=== PATIENT | female | born 1925 | race Caucasian/White ===

== ENCOUNTER 2016-12-24 07:07 | Inpatient (IN) ==
--- NOTE | 2016-12-24 08:10 | XRay Report ---
CLINICAL INFORMATION: Trauma COMPARISON: Chest x-ray from 10/29/2016 FINDINGS: The heart is moderately enlarged but unchanged. Mediastinum is grossly normal. The pulmonary vessels are moderately distended and there is mild interstitial edema throughout both lungs. Moderate right and small left pleural effusions and bibasilar atelectasis are unchanged. Acute fractures of the lateral left fifth and possibly sixth and seventh ribs are noted IMPRESSION: Moderate CHF - unchanged Acute left fifth and probable six and seventh rib fractures Interpreted and Authenticated by: Chetan Pichardo 12/24/16
--- NOTE | 2016-12-24 08:18 | XRay Report ---
CLINICAL INFORMATION: Trauma COMPARISON: None. FINDINGS: No fracture line identified; however, there is distention of the anterior and posterior extra synovial fat pads compatible with a joint effusion. 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 Mild diffuse soft tissue swelling noted. IMPRESSION: No fracture line or other osseous abnormality appreciated Moderate elbow effusion. Typically, in a posttraumatic situation, this would indicate an occult fracture with associated hemarthrosis. In this particular case, the patient has chondrocalcinosis and may have an underlying arthritic process, such as gout or pseudogout, which may result in an effusion independent of trauma. As a conservative measure, suggest immobilization and repeat film in 10 days to ensure the absence of a occult fracture which may be visible on delayed imaging. Also, please query patient regarding pre-existing elbow pain suggestive of a chronic arthritic process Interpreted and Authenticated by: Chetan Pichardo 12/24/16
--- NOTE | 2016-12-24 08:33 | Emergency Department Note ---
General Adult HPI - General Chief complaint: Rib Pain Stated complaint: fall, l elbow and rib pain Time Seen by Provider: 12/24/16 08:30 Source: patient Mode of arrival: wheelchair Limitations: no limitations - History of Present Illness HPI Narrative: 89-year-old female states that she slid off the toilet and is complaining about pain to the left lower rib cage area. s He denies any shortness of breath but there is tenderness on palpation to the left lower rib laterally. She states she did not hit her head there was no neck pain. she states she did not hit her head. Did states she bumped her left elbow there is some swelling and tenderness to the left elbow is full range of motion and normal sensation she lives at [facility] and is on the assisted side - Related Data Home Medications Medication Instructions Recorded Confirmed acetaminophen 500 mg tablet 500 mg PO Q6H tab 08/31/16 12/24/16 Cyanocobalamin (Vitamin B-12) 1,000 mcg PO BID 10/08/16 12/24/16 [Vitamin B12] Ferrous Gluconate [Fergon] 324 mg PO DAILY 10/08/16 12/24/16 Previous Rx's Medication Instructions Recorded lisinopril 2.5 mg tablet 2.5 mg PO .COMPLEX #30 tab 10/15/16 potassium chloride ER 10 mEq 20 meq PO BID #56 tab 10/15/16 tablet,extended release diltiazem ER 360 mg capsule,24 300 mg PO QDAY #90 cap 10/24/16 hr,extended release fluticasone 250 mcg-salmeterol 50 1 puff INHALATION BID #60 each 10/30/16 mcg/dose blistr powdr for inhalation furosemide 40 mg tablet 40 mg PO BID #60 tab 11/01/16 Manual wheelchair #1 each 11/15/16 metolazone 5 mg tablet 5 mg PO QDAY #30 tab 11/26/16 silver sulfadiazine 1 % topical 1 applic TOPICAL QDAY #50 g 12/03/16 cream warfarin 3 mg tablet 6 mg PO .COMPLEX #90 tab 12/17/16 Allergies Allergy/AdvReac Type Severity Reaction Status Date / Time clarithromycin Allergy Unknown Unknown Verified 12/17/16 12:57 divalproex sodium Allergy Unknown Unknown Verified 12/17/16 12:57 [From Depakote] doxycycline Allergy Unknown Unknown Verified 12/17/16 12:57 spironolactone Allergy Unknown Elevated Verified 12/17/16 12:57 potassium digoxin Allergy Unknown Verified 12/17/16 12:57 Erythromycin Base Allergy Unknown Verified 12/17/16 12:57 Review of Systems All systems ED: reviewed and negative except as stated. Constitutional: Denies: fever, chills Eyes: Denies: eye pain ENT ED: Denies: ear pain Cardiovascular: Reports: as per HPI, chest pain (left rib pain). Denies: palpitations, dyspnea on exertion, orthopnea Respiratory: Denies: cough, dyspnea Gastrointestinal: Denies: abdominal pain, nausea, vomiting Genitourinary: Denies: urgency, dysuria Musculoskeletal: Denies: back pain Integumentary: Denies: rash Neurological: Denies: headache Psychiatric: Denies: anxiety Endocrine: Denies: fatigue Hematological/Lymphatic: Denies: easy bleeding Allergic/Immunologic: Denies: facial swelling Past Medical History - Past Medical History Medical history: Reports: atrial fibrillation, CHF, COPD, other (Stenosis, atrial fibrillation, COPD, urinary artery disease, retention, lumbosacral disc disease macular degeneration show stenosis asthma CKD.) Surgical history ED: Reports: non-contributory 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 Absent: respiratory distress, wheezes - Cardiovascular Cardiovascular exam: Present: regular rate, normal rhythm - Abdominal Exam Abdominal exam: Present: soft. Absent: distention, tenderness - Expanded Upper Extremity Exam Shoulder exam: Present: normal inspection, full ROM Elbow exam: Present: tenderness (left elbow), swelling Forearm/Wrist exam: Present: normal inspection, full ROM - Back Exam Back exam: Present: normal inspection, full ROM. Absent: tenderness, CVA tenderness (R), CVA tenderness (L) - Neurological Exam Neurological exam: Present: alert, oriented X3, CN II-XII intact, normal gait, motor sensory deficit - Psychiatric Psychiatric exam: Present: normal affect, normal mood - Skin Skin exam: Present: warm Course Vital Signs Temperature 96.7 F L 12/24/16 07:08 Pulse Rate 78 12/24/16 07:08 Respiratory Rate 18 12/24/16 07:08 Blood Pressure 112/44 12/24/16 07:08 Pulse Oximetry (%) 95 12/24/16 07:08 Temperature 96.7 F L 12/24/16 07:08 Pulse Rate 78 12/24/16 07:08 Respiratory Rate 18 12/24/16 07:08 Blood Pressure 112/44 12/24/16 07:08 Pulse Oximetry (%) 95 12/24/16 07:08 Medical Decision Making - MDM Narrative Medical decision making narrative: rib fracture of left 5,6,7 chf on chest. elevated fat pad left elbow no fx seen put in sling for now. 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
[2016-12-24] MEDS ORDERED: FUROSEMIDE 40 MG/4 ML VIAL IV ONE (08:51)
[2016-12-24] MEDS ORDERED: HYDROcodone/APAP 5/325MG TABLET PO ONE (09:06)
[2016-12-24 09:16] LABS: Basophils # (Auto) 0 K/mcL (0.0-0.3); Basophils % (Auto) 0.2 % (0.0-2.0); Eosinophils # (Auto) 0 K/mcL (0.0-0.7); Eosinophils % (Auto) 1.1 % (0.0-7.0); Granulocytes % (Auto) 77.5 % (38.0-78.0); Lymphocytes # (Auto) 0.3 K/mcL (1.5-4.8); Lymphocytes % (Auto) 6.5 % (15.5-49.0); Mean Cell Volume 89.1 fL (80.0-100.0); Mean Corpuscular HGB Conc 33.5 g/dL (31.0-36.0); Mean Corpuscular Hemoglobin 29.8 pg (26.0-34.0); Monocytes # (Auto) 0.6 K/mcL (0.1-0.9); Monocytes % (Auto) 14.7 % (1.0-12.0); Platelet Count 146 K/mcL (140-440); RBC 3.62 M/mcL (4.00-5.20); Red Cell Distribution Width 15.6 % (11.5-14.5)
[2016-12-24 09:36] LABS: Creatine Kinase 46 IU/L (24-170); Creatine Kinase MB 4.3 ng/ml (0-2.9); Myoglobin 159 ng/ml (25-58)
[2016-12-24] MEDS ORDERED: HYDROmorphone 2 MG/ML SYRINGE IV PRN (10:17)
[2016-12-24] MEDS ORDERED: MAGNESIUM HYDROXIDE 30 ML ORAL.SUSP PO PRN (10:55)
[2016-12-24] MEDS ORDERED: ONDANSETRON 4 MG/2 ML VIAL IV PRN (10:55)
[2016-12-24] MEDS ORDERED: NALOXONE HCL 0.4 MG/ML VIAL IV PRN (10:55)
[2016-12-24] MEDS ORDERED: IPRATROPIUM/ALBUTEROL 3 ML AMPUL.NEB NEB PRN (10:55)
[2016-12-24 12:25] LABS: ALT/SGPT 11 U/l (0-40); Albumin 3.7 gm/dL (3.2-5.2); Albumin/Globulin Ratio 1.5 (1.0-2.3); Alkaline Phosphatase 114 U/L (39-117); Bilirubin,Direct 0.2 mg/dL (0.0-0.3); Blood Urea Nitrogen 43 mg/dl (8-23); Gamma Glutamyl Transpeptidase 99 U/L (5-36); Magnesium 2.1 mg/dL (1.6-2.5); Uric Acid 10.7 mg/dL (2.5-8.0)
[2016-12-24] MEDS ORDERED: SODIUM POLYSTYRENE SULFONATE 15 GM/60 ML SUSPENSION PO ONE (13:49)
[2016-12-24] MEDS ORDERED: SILVER SULFADIAZINE CREAM.TOP 25GM TOPICAL SCH (14:00)
[2016-12-24] MEDS ORDERED: WARFARIN 3 MG TABLET PO SCH (14:00)
--- NOTE | 2016-12-24 14:00 | Internal Med History&Physical ---
Medical - H&P: HPI Patient information: Note initiated : 12/24/16 at 1:57 pm Service Date, if different from initiated Date: [] Patient: Padilla Harmon 89 y/o F admitted on 12/24/16 for fall, l elbow and rib pain. Chief Complaint: [] History of present illness: Ms. 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 According to the patient she was doing well untill this AM, she was in a hurry to get to breakfast and was transferring from a walker to the wheelchair, she was in her closetwhen she slipped down and hurt the left side of her body. The patient denies any dizziness, any head injury, any passing out. The patient had chest pain on the left side. Since that time. The pain is moderate to severe sharp, nonradiating, worse with taking a deep breath or cough. Relieved by aking shallow breaths. The patient felt that she will not be able to get up by herself and therefore yelled for help The patient was brought into the ER and also protocol for evaluation. In the emergency room, the patient had x-ray of the left side of the ribs along with chest x-ray, there was concern about trauma to the left elbow. An x-ray of the left elbow was done. The x-ray of the chest showed possible fracture of the ribs 5, 6, 7. The exploratory moderate congestive heart failure, which is a chronic finding, along with cardiomegaly. The left elbow x-ray did not show any fracture, however, there was some swelling in the elbow joint with concern about hemarthrosis. Patient is on Coumadin with therapeutic INR. Patient's blood work shows low sodium at 125. This was a [id number] sodium, elevated creatinine 2.3, and troponin of 0.05 which is slightly above her baseline. The patient also has elevated BNP levels but not significantly different than her previous blood tests. The patient denies any cough, any fevers, any urinary symptoms, any bowel or bladder complaints and besides symptoms mentioned above. Does not feel that anything else is going on with her . The patient given her hyponatremia, worsening renal function New acute fractures, was admitted to the hospital for further evaluation. On talking to the family, the patient was recently admitted to [facility] for hyperkalemia,it seems that she had taken too much potassium at that time. And at that time. Also, there was concern about the kidney was not functioning very well. The patients was admitted to the hospital for acute on chr renal failure, rib fracture, congestive heart failuire. All systems: reviewed and no additional remarkable complaints except as stated ( as per HPI) Medical - H&P: H Medical history: Medical History (Last Updated 12/24/16 @ 08:52 by Doroteo Barfield MD) Aortic stenosis (Chronic) Atherosclerosis (Chronic) Atrial fibrillation (Chronic) COPD (chronic obstructive pulmonary disease) (Chronic) Constipation (Chronic) Coronary artery disease (Chronic) DDD (degenerative disc disease) (Chronic) Hyperlipidemia (Chronic) Benign essential hypertension (Chronic) Lumbar disc disease (Chronic) Macular degeneration (Chronic) Mitral stenosis (Chronic) Nuclear sclerosis (Chronic) Pseudophakia (Chronic) Urinary tract infection (Chronic) Unspecified visual disturbance (Chronic) Heart valve regurgitation (Chronic) Irregularly irregular pulse rhythm (Chronic) Asthma (Chronic) Iron deficiency anemia (Chronic) Surgical history: Past Surgical History (Last Reviewed 11/15/16 @ 14:02 by Doroteo Fried MD) History of aortic valve replacement (Chronic) History of appendectomy (Chronic) History of back surgery (Chronic) History of cholecystectomy (Chronic) History of colonoscopy with polypectomy (Chronic ~2005) History of coronary artery bypass graft (Chronic) History of hysterectomy (Chronic) History of knee surgery (Chronic ~1995) History of open reduction and internal fixation (ORIF) procedure (Chronic ) History of thoracentesis (Chronic 06/01/14) Family history: reviewed and not pertinent Medical - H&P: Meds Home Medications Medication Instructions Recorded Confirmed Type acetaminophen 500 mg tablet 500 mg PO Q6H tab 08/31/16 11/26/16 History Cyanocobalamin (Vitamin B-12) 1,000 mcg PO BID 10/08/16 12/24/16 History [Vitamin B12] Ferrous Gluconate [Fergon] 324 mg PO DAILY 10/08/16 12/24/16 History lisinopril 2.5 mg tablet 2.5 mg PO .COMPLEX #30 tab 10/15/16 12/24/16 Rx potassium chloride ER 10 mEq 20 meq PO BID #56 tab 10/15/16 12/24/16 Rx tablet,extended release diltiazem ER 360 mg capsule,24 300 mg PO QDAY #90 cap 10/24/16 12/24/16 Rx hr,extended release fluticasone 250 mcg-salmeterol 50 1 puff INHALATION BID #60 each 10/30/16 Rx mcg/dose blistr powdr for inhalation furosemide 40 mg tablet 40 mg PO BID #60 tab 11/01/16 12/24/16 Rx Manual wheelchair #1 each 11/15/16 11/26/16 Rx metolazone 5 mg tablet 5 mg PO QDAY #30 tab 11/26/16 12/24/16 Rx silver sulfadiazine 1 % topical 1 applic TOPICAL QDAY #50 g 12/03/16 12/24/16 Rx cream Warfarin Sodium [Jantoven] 3 mg PO MOTH@1400 12/24/16 12/24/16 History Warfarin Sodium [Jantoven] 6 mg PO SUTUWEFRSA@1400 12/24/16 12/24/16 History Allergies Allergy/AdvReac Type Severity Reaction Status Date / Time clarithromycin Allergy Unknown Unknown Verified 12/17/16 12:57 divalproex sodium Allergy Unknown Unknown Verified 12/17/16 12:57 [From Depakote] doxycycline Allergy Unknown Unknown Verified 12/17/16 12:57 spironolactone Allergy Unknown Elevated Verified 12/17/16 12:57 potassium digoxin Allergy Unknown Verified 12/17/16 12:57 Erythromycin Base Allergy Unknown Verified 12/17/16 12:57 Medical - H&P: Exam - Constitutional Vitals: Temp Pulse Resp BP Pulse Ox 97.2 F 47 L 20 109/57 93 12/24/16 10:45 12/24/16 12:31 12/24/16 10:45 12/24/16 12:31 12/24/16 12:31 Exam: GENERAL: The patient is a well-developed, well-nourished in no apparent distress. Is alert and oriented x3. VITAL SIGNS: Reviewed and as noted elsewhere. HEENT: Head is normocephalic and atraumatic. Extraocular muscles are intact. Pupils are equal, round, and reactive to light. Nares appeared normal. Mouth appears any without lesions. Mucous membranes are moist. NECK: Normal to inspection, Supple, No lymphadenopathy or thyromegaly. LUNGS: Air entry equal on both sides, no wheezing,but bibasilar crackles noted. No accessory muscles of respiration HEART: Regular rate and rhythm irregular, S1 and S2 heard, no Gallop, S3 or Rub Noted, systolic murmur present, left sided chest wall tenderness present ABDOMEN: Soft, nontender, and nondistended. Positive bowel sounds. No hepatosplenomegaly was noted. EXTREMITIES: No cyanosis, clubbing, rash, lesions or edema. NEUROLOGIC: Cranial nerves II through XII are grossly intact. Motor and Sensory System Grossly Intact PSYCHIATRIC: Normal affect, Normal Mood. Appropriate Behavior. SKIN: No ulceration or wounds noted, No jaundice, No rash noted. Extremity: tonya edema ++++ Left ellbow: in sling, tender to touch on the olceron region, also mild crepitus on deep palpation noted. Medical - H&P: Reslt - Labs CBC & Chem 7: 12/24/16 08:47 12/24/16 11:04 Labs: BMP 12/24/16 11:04 Sodium 125 L Potassium 5.3 H Chloride 86 L Carbon Dioxide 28 BUN 43 H Creatinine 2.1 H Glucose 112 H Calcium 8.9 Cardiac Enzymes 12/24/16 Range/Units 11:04 Troponin T 0.05 H* (0-0.03) ng/ml Liver Function 12/24/16 Range/Units 11:04 Total Bilirubin 0.6 (0.0-1.0) mg/dL Direct Bilirubin 0.2 (0.0-0.3) mg/dL GGT 99 H (5-36) U/L AST 21 (0-37) U/l ALT 11 (0-40) U/l Alkaline Phosphatase 114 (39-117) U/L Albumin 3.7 (3.2-5.2) gm/dL Medical - H&P: A/P - Narrative A/P Narrative: A/P Acute on Chr Renal failure: Get UA, Given fluid overload situation, likely secondary to CHF, IV lasix given, will monitor for now. Renal USG ordered. Acute on Chr Congestive Heart failure: due to ischemic and valvular etiology. IV lasix given. Monitor on tele, get Echo. Follows with Cardiology. Elevated Troponin.: Likely secondary to renal failure and chf, EKG does not show ST elevations, but has non specific changes. Old EKG not available for comparison. Repeat trop is also 0.05, pt not keen on major interventions at this time. Monitor for now. She is anticoagulated on coumadin. Hyperkalemia K 5.3, one dose of kayexalate today, reassess, hold KCL supplementation. Hyponatremia: Last sodium was 130, presently 125, given fluid overloaded status , likely secondary to chf / ckd, Diuresis for now and will reassess Rib Fractures: due to fall, pain management, Incentive spirometry. Atrial Fibrillation: Rate controlled on cardizem, on coumadin with therapeutic INR Elbow pain: X ray neg, but has arthrosis? effusion? keep in sling, get CT elbow. Weakness/ Debility: OT/ PT/ ST Recent Cellutlitis of left hand: s/p antibiotics, on silvadene cream DNR Cardiac diet Medical - H&P: Qual - VTE Deep Vein Thrombosis/Pulmonary Embolism Present on Admission: No Social History - Tobacco smoking status: Never smoker - Alcohol alcohol intake frequency: holiday/special occasion only - Substance use substance use type: does not use
[2016-12-24] MEDS: HYDROcodone/APAP 5/325MG TABLET PO PRN ×2 (14:35→19:55)
--- NOTE | 2016-12-24 14:38 | Cat Scan Report ---
CLINICAL INFORMATION: trauma COMPARISON: Plain films 12/24/2016 TECHNIQUE:. 2.5 mm helical slices were obtained from the distal one half of the humerus to the proximal one half of the radius and ulna. Following reconstruction, sagittal coronal axial reformatted images were processed and reviewed in bone and soft tissue windows FINDINGS: There is a subtle curvilinear hairline fracture through the medial radial head which communicates with the articular surface of the radius. No other osseous abnormalities. No definite effusions. There is moderate chondrocalcinosis within the elbow joint - particularly the radiocapitellar joint mild underlying degeneration noted. There is mild soft tissue swelling in the periarticular soft tissues.. IMPRESSION: 1. Subtle curvilinear hairline fracture involving the medial aspect of the radial head. 2. 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 This is likely merely related to degeneration could also indicate gout, pseudogout, hypercalcemia or hypothyroidism Interpreted and Authenticated by: Chetan Pichardo 12/24/16
--- NOTE | 2016-12-24 14:48 | Ultrasound Report ---
CLINICAL INFORMATION: Renal failure COMPARISON: Abdomen and pelvic CT from 05/10/2010 FINDINGS: Both kidneys are normal and symmetric in size, position, configuration and echotexture: The right is 10 x 5.6 cm and the left is 10 x 5 cm. Scattered simple cysts on both kidneys ranging up to 2.2 cm inferior pole left kidney are stable since the CT. No solid lesions. A 5 mm nonobstructing stone is noted in the mid calyx the left kidney. There is no hydronephrosis suggest obstructing stone. Arterial blood flow is grossly normal on color and spectral Doppler Urinary bladder volume is 180 cc - patient unable to void. No bladder lesions IMPRESSION: 1. Bilateral simple cysts stable since 2011 CT 2. 5 mm nonobstructing stone mid calyx left kidney. Interpreted and Authenticated by: Chetan Pichardo 12/24/16
[2016-12-24] MEDS: SILVER SULFADIAZINE CREAM.TOP 400GM TOPICAL SCH (15:11)
[2016-12-24] MEDS ORDERED: POTASSIUM CHLORIDE 20 MEQ TABLET PO SCH (17:30)
[2016-12-24] MEDS: CYANOCOBALAMIN (VITAMIN B-12) 500 MCG TABLET PO SCH (20:31)
[2016-12-24] MEDS: FLUTICASONE/SALMETEROL 250/50 INHALER #14 INH SCH (20:33)
[2016-12-24] MEDS: 0.9 % SODIUM CHLORIDE 10 ML SYRINGE IV SCH (21:07)
[2016-12-25] MEDS: HYDROcodone/APAP 5/325MG TABLET PO PRN ×3 (03:15→21:55)
[2016-12-25] MEDS: 0.9 % SODIUM CHLORIDE 10 ML SYRINGE IV SCH ×3 (06:05→21:54)
[2016-12-25] MEDS: FERROUS GLUCONATE 324 MG TABLET PO SCH (08:29)
[2016-12-25] MEDS: DILTIAZEM 120 MG CAP.XL.24H PO SCH (08:31)
[2016-12-25] MEDS: CYANOCOBALAMIN (VITAMIN B-12) 500 MCG TABLET PO SCH ×2 (08:32→19:50)
[2016-12-25] MEDS: DILTIAZEM 180 MG CAP.XL.24H PO SCH (08:33)
[2016-12-25] MEDS: FLUTICASONE/SALMETEROL 250/50 INHALER #14 INH SCH ×2 (08:38→19:50)
[2016-12-25 08:41] LABS: Basophils # (Auto) 0 K/mcL (0.0-0.3); Basophils % (Auto) 0.4 % (0.0-2.0); Eosinophils # (Auto) 0.1 K/mcL (0.0-0.7); Eosinophils % (Auto) 2.5 % (0.0-7.0); Granulocytes % (Auto) 69.9 % (38.0-78.0); Lymphocytes # (Auto) 0.4 K/mcL (1.5-4.8); Lymphocytes % (Auto) 11.2 % (15.5-49.0); Mean Corpuscular HGB Conc 33.2 g/dL (31.0-36.0); Mean Corpuscular Hemoglobin 29.9 pg (26.0-34.0); Monocytes # (Auto) 0.6 K/mcL (0.1-0.9); Platelet Count 144 K/mcL (140-440); RBC 3.71 M/mcL (4.00-5.20); Red Cell Distribution Width 15.6 % (11.5-14.5)
[2016-12-25 08:47] LABS: Appearance,Urine CLEAR; Bacteria,Urine 0 /hpf (0); Bilirubin,Urine NEG (NEG); Color,Urine YELLOW; Glucose,Urine (UA) NEGATIVE (NEG); Leukocyte Esterase,Urine NEG /uL (NEG); Mucus,Urine FEW /hpf (0); Nitrate,Urine NEG (NEG); Protein,Urine NEG (NEG); Urine Blood NEG mg/dL (<0.03); Urine Hyaline Cast 1 /lpf (0-2); Urine RBC 0 /hpf (0-1); Urine Squamous Epithelial Cell 1 /hpf (0-4); Urine Transitional Epi Cells < 1 /hpf (0-2); Urine WBC < 1 /hpf (0-4); Urobilinogen,Urine NEG (NEG)
[2016-12-25 09:06] LABS: ALT/SGPT 11 U/l (0-40); Albumin 3.7 gm/dL (3.2-5.2); Albumin/Globulin Ratio 1.5 (1.0-2.3); Alkaline Phosphatase 115 U/L (39-117); Bilirubin,Direct 0.2 mg/dL (0.0-0.3); Blood Urea Nitrogen 38 mg/dl (8-23); Gamma Glutamyl Transpeptidase 101 U/L (5-36); Magnesium 1.9 mg/dL (1.6-2.5)
[2016-12-25] MEDS ORDERED: FUROSEMIDE 40 MG/4 ML VIAL IV ONE (09:23)
[2016-12-25] MEDS: SILVER SULFADIAZINE CREAM.TOP 400GM TOPICAL SCH (13:32)
[2016-12-25] MEDS: WARFARIN 3 MG TABLET PO SCH (14:16)
--- NOTE | 2016-12-25 14:43 | Internal Med Progress Note ---
Medical - PN: Subj Patient information: Note initiated : 12/25/16 at 2:40 pm Service Date, if different from initiated Date: [] Patient: Padilla Harmon 89 y/o F admitted on 12/24/16 for CHF, Rib Fractures, Elbow Injury. Chief Complaint: [] Interval history: Ms. 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 According to the patient she was doing well untill this AM, she was in a hurry to get to breakfast and was transferring from a walker to the wheelchair, she was in her closetwhen she slipped down and hurt the left side of her body. The patient denies any dizziness, any head injury, any passing out. The patient had chest pain on the left side. Since that time. The pain is moderate to severe sharp, nonradiating, worse with taking a deep breath or cough. Relieved by aking shallow breaths. The patient felt that she will not be able to get up by herself and therefore yelled for help The patient was brought into the ER and also protocol for evaluation. In the emergency room, the patient had x-ray of the left side of the ribs along with chest x-ray, there was concern about trauma to the left elbow. An x-ray of the left elbow was done. The x-ray of the chest showed possible fracture of the ribs 5, 6, 7. The exploratory moderate congestive heart failure, which is a chronic finding, along with cardiomegaly. The left elbow x-ray did not show any fracture, however, there was some swelling in the elbow joint with concern about hemarthrosis. Patient is on Coumadin with therapeutic INR. Patient's blood work shows low sodium at 125. This was a kduvp-[id number]-tqfi sodium, elevated creatinine 2.3, and troponin of 0.05 which is slightly above her baseline. The patient also has elevated BNP levels but not significantly different than her previous blood tests. The patient denies any cough, any fevers, any urinary symptoms, any bowel or bladder complaints and besides symptoms mentioned above. Does not feel that anything else is going on with her . The patient given her hyponatremia, worsening renal function New acute fractures, was admitted to the hospital for further evaluation. On talking to the family, the patient was recently admitted to [facility] for hyperkalemia,it seems that she had taken too much potassium at that time. And at that time. Also, there was concern about the kidney was not functioning very well. The patients was admitted to the hospital for acute on chr renal failure, rib fracture, congestive heart failure 12/25 patient seen and examined, no acute overnight events, she still has pain on the left side of the chest, pain is better when she is lying on her back, worse when she's sitting up. Worse when taking deep breaths. Patient is able to tolerate by mouth diet very well and besides of left-sided chest pain. Does not report any other complaints. Labs reviewed. Patient is still hyponatremic at 125, baseline 128-130, troponin is 0.04 which is slightly improved from yesterday. Pertinent ROS: Denies headache, dizziness present left chest pain, No palpitations Denies cough or shortness of breath Denies abdominal pain, nausea or vomiting. - Constitutional Vitals: Vital Signs Temp Pulse Resp BP Pulse Ox 96.9 F L 91 H 20 108/52 96 12/25/16 11:59 12/25/16 08:00 12/25/16 11:59 12/25/16 11:59 12/25/16 11:59 Period Temp Pulse Resp BP Sys/Kirby Pulse Ox Last 24 Hr 96.9 F-97.9 F 78-97 18-24 108-132/52-77 92-96 Intake and Output 12/25/16 12/25/16 12/25/16 05:59 13:59 21:59 Intake Total 125 / 125 720 / 720 Output Total 375 / 375 101 / 101 Balance -250 / -250 619 / 619 Weight 164 lb 11.2 oz Patient Weight 12/26/16 05:59 Weight 164 lb 11.2 oz Intake & Output: Intake & Output 12/25/16 12/25/16 12/25/16 05:59 13:59 21:59 Intake Total 125 / 125 720 / 720 Output Total 375 / 375 101 / 101 Balance -250 / -250 619 / 619 Weight 164 lb 11.2 oz Intake: Oral 125 / 125 720 / 720 Output: Void Amount 375 / 375 100 / 100 # of times incontinent of 1 / 1 urine Other: Meal Lunch Percent of Meal Consumed 75% Feeding Ability Assist with Tray Set Up # Bowel Movements 1 # of times incontinent of 1 Bowels Exam: Constitutional; Afebrile, cooperative, alert, not in distress. Eyes- No icterus, , No periorbital swelling Ears- Ext ear normal, hearing normal to conversation. Neck- Midline trachea, supple Respiratory system: Air Entry equal on both sides, No crackles or wheezing, no rhonchi. CVS- Rate rhythm irregular, S1,S2 heard, no gallop, no rub. 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 Medical - PN: Obj Da - Labs CBC & Chem 7: 12/25/16 07:59 12/25/16 08:10 Labs: Abnormal Lab Results 12/25/16 12/25/16 12/25/16 08:10 08:10 07:59 WBC 3.6 L RBC 3.71 L Hgb 11.1 L Hct 33.4 L RDW 15.6 H Lymph % (Auto) 11.2 L [place] % (Auto) 16.0 H Lymph # (Auto) 0.4 L PT INR Sodium 125 L Potassium Chloride 87 L BUN 38 H Creatinine 1.5 H Glucose Uric Acid 11.0 H GGT 101 H Troponin T 0.04 H* 12/25/16 12/24/16 12/24/16 03:31 11:04 11:04 WBC RBC Hgb Hct RDW Lymph % (Auto) [place] % (Auto) Lymph # (Auto) PT 24.8 H INR 2.2 H Sodium 125 L Potassium 5.3 H Chloride 86 L BUN 43 H Creatinine 2.1 H Glucose 112 H Uric Acid 10.7 H GGT 99 H Troponin T 0.05 H* Meds: Medications Acetaminophen (Tylenol) 650 mg PO Q6HP PRN PRN Reason: PAIN/FEVER > 101 Hydrocodone Bitart/Acetaminophen ([place] 5/325mg) 1 tab PO Q4HP PRN PRN Reason: Pain Last Admin: 12/25/16 14:16 Dose: 1 tab Albuterol/Ipratropium (Duoneb) 3 ml NEB Q4HRT PRN PRN Reason: Shortness Of Breath Or Wheezing Cyanocobalamin (Vitamin B-12) 1,000 mcg PO BID [facility] Last Admin: 12/25/16 08:32 Dose: 1,000 mcg Diltiazem HCl (Cardizem Cd) 120 mg PO DAILY [facility] Last Admin: 12/25/16 08:31 Dose: 120 mg Diltiazem HCl (Cardizem Cd) 180 mg PO DAILY [facility] Last Admin: 12/25/16 08:33 Dose: 180 mg Ferrous Gluconate (Fergon) 324 mg PO [facility] Last Admin: 12/25/16 08:29 Dose: 324 mg Magnesium Hydroxide (Milk Of Magnesia) 30 ml PO DAILYP PRN PRN Reason: Constipation Naloxone HCl (Narcan) 0.1 mg IV Q2MIN PRN PRN Reason: Opiate Reversal Ondansetron HCl (Zofran) 4 mg IV Q4HP PRN PRN Reason: Nausea And Vomiting Fluticasone/Salmeterol (Advair 250-50 Diskus) 1 puff INH BID [facility] Last Admin: 12/25/16 08:38 Dose: 1 puff Silver Sulfadiazine (Silvadene) 1 dose TOPICAL DAILY [facility] Last Admin: 12/25/16 13:32 Dose: Not Given Sodium Chloride (Saline Flush) 10 ml IV Q8 [facility] Last Admin: 12/25/16 14:16 Dose: 10 ml Warfarin Sodium (Coumadin) 3 mg PO MoFr@1400 [facility] Last Admin: 12/24/16 14:32 Dose: 3 mg Warfarin Sodium (Coumadin) 6 mg PO SuTuWeThSa@1400 [facility] Last Admin: 12/25/16 14:16 Dose: 6 mg Medical - PN: A/P - Time Spent With Patient Total time spent is greater than 50% in coordination of care (as documented) at patient's floor/unit and/or counseling patient: - Narrative A/P Narrative: Acute on Chr Renal failure: Creat improved back to baseline, renal sonogram neg for hydro, likely cardio renal sy ndrome, IV lasix for now. Acute on Chr Congestive Heart failure: due to ischemic and valvular etiology. continue IV lasix. fluid restriction monitor i/o Elevated Troponin.: Likely secondary to renal failure and chf, EKG does not show ST elevations, torp tending down to 0.04. Hyperkalemia resolved. Hyponatremia: Last sodium was 130, presently 125, given fluid overloaded status , likely secondary to chf / ckd, continue diuresis, fluid restriction to 1500m. 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 Atrial Fibrillation: Rate controlled on cardizem, on coumadin with therapeutic INR Elbow pain: CT shows hairline fracture of radius head, discussed with Dr Gutiérrez, who noted no intervention needed, no sling needed. Weakness/ Debility: OT/ PT/ ST , rehab once stable. DNR Cardiac diet Medical - PN: Qual - VTE Deep Vein Thrombosis/Pulmonary Embolism Present on Admission: No
[2016-12-25] MEDS: ACETAMINOPHEN 325 MG TABLET PO PRN (15:48)
[2016-12-26] MEDS: HYDROcodone/APAP 5/325MG TABLET PO PRN ×4 (01:52→15:05)
[2016-12-26] MEDS: 0.9 % SODIUM CHLORIDE 10 ML SYRINGE IV SCH ×3 (06:06→21:30)
[2016-12-26 06:34] LABS: Basophils # (Auto) 0 K/mcL (0.0-0.3); Basophils % (Auto) 0.3 % (0.0-2.0); Eosinophils # (Auto) 0.1 K/mcL (0.0-0.7); Eosinophils % (Auto) 2.1 % (0.0-7.0); Granulocytes % (Auto) 75.1 % (38.0-78.0); Lymphocytes # (Auto) 0.3 K/mcL (1.5-4.8); Lymphocytes % (Auto) 7.8 % (15.5-49.0); Mean Cell Volume 92.1 fL (80.0-100.0); Mean Corpuscular HGB Conc 33.5 g/dL (31.0-36.0); Mean Corpuscular Hemoglobin 30.8 pg (26.0-34.0); Monocytes # (Auto) 0.7 K/mcL (0.1-0.9); Monocytes % (Auto) 14.7 % (1.0-12.0); Platelet Count 144 K/mcL (140-440); RBC 3.32 M/mcL (4.00-5.20); Red Cell Distribution Width 15.7 % (11.5-14.5)
[2016-12-26 07:36] LABS: ALT/SGPT 9 U/l (0-40); Albumin 3.3 gm/dL (3.2-5.2); Albumin/Globulin Ratio 1.3 (1.0-2.3); Alkaline Phosphatase 104 U/L (39-117); Bilirubin,Direct < 0.2 mg/dL (0.0-0.3); Blood Urea Nitrogen 41 mg/dl (8-23); Gamma Glutamyl Transpeptidase 87 U/L (5-36); Magnesium 1.9 mg/dL (1.6-2.5); Uric Acid 11.1 mg/dL (2.5-8.0)
[2016-12-26] MEDS ORDERED: FUROSEMIDE 40 MG/4 ML VIAL IV ONE (07:46)
[2016-12-26] MEDS: DILTIAZEM 120 MG CAP.XL.24H PO SCH (08:08)
[2016-12-26] MEDS: FERROUS GLUCONATE 324 MG TABLET PO SCH (08:09)
[2016-12-26] MEDS: CYANOCOBALAMIN (VITAMIN B-12) 500 MCG TABLET PO SCH ×2 (08:09→20:43)
[2016-12-26] MEDS: FLUTICASONE/SALMETEROL 250/50 INHALER #14 INH SCH ×2 (08:09→20:43)
[2016-12-26] MEDS: DILTIAZEM 180 MG CAP.XL.24H PO SCH (08:09)
[2016-12-26] MEDS ORDERED: FUROSEMIDE 20 MG TABLET PO SCH (09:00)
[2016-12-26] MEDS ORDERED: METOLAZONE 2.5 MG TABLET PO SCH (09:00)
[2016-12-26] MEDS: SILVER SULFADIAZINE CREAM.TOP 400GM TOPICAL SCH (10:26)
--- NOTE | 2016-12-26 11:16 | Internal Med Progress Note ---
Medical - PN: Subj Patient information: Note initiated : 12/26/16 at 11:14 am Service Date, if different from initiated Date: [] Patient: Padilla Harmon 89 y/o F admitted on 12/24/16 for CHF, Rib Fractures, Elbow Injury. Chief Complaint: [] Interval history: Ms. 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 According to the patient she was doing well untill this AM, she was in a hurry to get to breakfast and was transferring from a walker to the wheelchair, she was in her closetwhen she slipped down and hurt the left side of her body. The patient denies any dizziness, any head injury, any passing out. The patient had chest pain on the left side. Since that time. The pain is moderate to severe sharp, nonradiating, worse with taking a deep breath or cough. Relieved by aking shallow breaths. The patient felt that she will not be able to get up by herself and therefore yelled for help The patient was brought into the ER and also protocol for evaluation. In the emergency room, the patient had x-ray of the left side of the ribs along with chest x-ray, there was concern about trauma to the left elbow. An x-ray of the left elbow was done. The x-ray of the chest showed possible fracture of the ribs 5, 6, 7. The exploratory moderate congestive heart failure, which is a chronic finding, along with cardiomegaly. The left elbow x-ray did not show any fracture, however, there was some swelling in the elbow joint with concern about hemarthrosis. Patient is on Coumadin with therapeutic INR. Patient's blood work shows low sodium at 125. This was a fpgnc-[id number] sodium, elevated creatinine 2.3, and troponin of 0.05 which is slightly above her baseline. The patient also has elevated BNP levels but not significantly different than her previous blood tests. The patient denies any cough, any fevers, any urinary symptoms, any bowel or bladder complaints and besides symptoms mentioned above. Does not feel that anything else is going on with her . The patient given her hyponatremia, worsening renal function New acute fractures, was admitted to the hospital for further evaluation. On talking to the family, the patient was recently admitted to [facility] for hyperkalemia,it seems that she had taken too much potassium at that time. And at that time. Also, there was concern about the kidney was not functioning very well. The patients was admitted to the hospital for acute on chr renal failure, rib fracture, congestive heart failure 12/25 patient seen and examined, no acute overnight events, she still has pain on the left side of the chest, pain is better when she is lying on her back, worse when she's sitting up. Worse when taking deep breaths. Patient is able to tolerate by mouth diet very well and besides of left-sided chest pain. Does not report any other complaints. Labs reviewed. Patient is still hyponatremic at 125, baseline 128-130, troponin is 0.04 which is slightly improved from yesterday. 12/26: Patient seen examined, no acute overnight events, patient doing well, did not complain much about pain on the left chest wall, Deneis any acute concern. Blood work reviewed, Na is improved to 129, creat 1.4, she will get additional dose of lasix today. Case reviewed with patients daughter Evi, plan for d/c to snf in AM if remains stable. She is chr fluid overloaded. Echo reviewed lvef 50 -55 visually, but has significant pulm htn, and ivc dilation. Pertinent ROS: Denies headache, dizziness improved chest pain, No palpitations Denies cough or shortness of breath Denies abdominal pain, nausea or vomiting. - Constitutional Vitals: Vital Signs Temp Pulse Resp BP Pulse Ox 96.7 F L 75 16 102/54 91 12/26/16 07:52 12/26/16 04:00 12/26/16 07:52 12/26/16 07:52 12/26/16 07:52 Period Temp Pulse Resp BP Sys/Kirby Pulse Ox Last 24 Hr 96.7 F-98.9 F 62-82 12-22 91-163/50-90 91-98 Intake and Output 12/25/16 12/26/16 12/26/16 21:59 05:59 13:59 Intake Total 480 / 480 360 / 360 Output Total 102 / 102 263 / 263 Balance - 378 / 378 97 / 97 Weight 162 lb 6.4 oz Intake & Output: Intake & Output 12/25/16 12/26/16 12/26/16 21:59 05:59 13:59 Intake Total 480 / 480 360 / 360 Output Total 102 / 102 263 / 263 Balance -1 378 / 378 97 / 97 Weight 162 lb 6.4 oz Intake: Oral 480 / 480 360 / 360 Output: Void Amount 100 / 100 260 / 260 # of times incontinent of 2 / 2 3 / 3 urine Other: Meal Dinner Breakfast Percent of Meal Consumed 5% 75% Feeding Ability Assist with Tray Set Up # Bowel Movements 0 1 Exam: Constitutional; Afebrile, cooperative, alert, not in distress. Eyes- No icterus, , No periorbital swelling Ears- Ext ear normal, hearing normal to conversation. Neck- Midline trachea, supple Respiratory system: Air Entry equal on both sides, No crackles or wheezing, no rhonchi. CVS- Rate rhythm irregular, S1,S2 heard, no gallop, no rub. 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 Gen edema, ++++ on extremities, and involves the dependent region. Medical - PN: Obj Da - Labs CBC & Chem 7: 12/26/16 04:18 12/26/16 04:18 Labs: Abnormal Lab Results 12/26/16 12/26/16 12/26/16 04:18 04:18 04:18 WBC RBC 3.32 L Hgb 10.2 L Hct 30.6 L RDW 15.7 H Lymph % (Auto) 7.8 L [place] % (Auto) 14.7 H Lymph # (Auto) 0.3 L PT 28.2 H INR 2.5 H Sodium 129 L Potassium Chloride 88 L BUN 41 H Creatinine 1.4 H Glucose Uric Acid 11.1 H GGT 87 H Troponin T Total Protein 5.8 L 12/25/16 12/25/16 12/25/16 08:10 08:10 07:59 WBC 3.6 L RBC 3.71 L Hgb 11.1 L Hct 33.4 L RDW 15.6 H Lymph % (Auto) 11.2 L [place] % (Auto) 16.0 H Lymph # (Auto) 0.4 L PT INR Sodium 125 L Potassium Chloride 87 L BUN 38 H Creatinine 1.5 H Glucose Uric Acid 11.0 H GGT 101 H Troponin T 0.04 H* Total Protein 12/25/16 12/24/16 12/24/16 03:31 11:04 11:04 WBC RBC Hgb Hct RDW Lymph % (Auto) [place] % (Auto) Lymph # (Auto) PT 24.8 H INR 2.2 H Sodium 125 L Potassium 5.3 H Chloride 86 L BUN 43 H Creatinine 2.1 H Glucose 112 H Uric Acid 10.7 H GGT 99 H Troponin T 0.05 H* Total Protein Meds: Medications Acetaminophen (Tylenol) 650 mg PO Q6HP PRN PRN Reason: PAIN/FEVER > 101 Last Admin: 12/25/16 15:48 Dose: 650 mg Hydrocodone Bitart/Acetaminophen ([place] 5/325mg) 1 tab PO Q4HP PRN PRN Reason: Pain Last Admin: 12/26/16 10:35 Dose: 1 tab Albuterol/Ipratropium (Duoneb) 3 ml NEB Q4HRT PRN PRN Reason: Shortness Of Breath Or Wheezing Cyanocobalamin (Vitamin B-12) 1,000 mcg PO BID [facility] Last Admin: 12/26/16 08:09 Dose: 1,000 mcg Diltiazem HCl (Cardizem Cd) 120 mg PO DAILY [facility] Last Admin: 12/26/16 08:08 Dose: 120 mg Diltiazem HCl (Cardizem Cd) 180 mg PO DAILY [facility] Last Admin: 12/26/16 08:09 Dose: 180 mg Ferrous Gluconate (Fergon) 324 mg PO [facility] Last Admin: 12/26/16 08:09 Dose: 324 mg Lisinopril (Zestril) 2.5 mg PO [facility] Magnesium Hydroxide (Milk Of Magnesia) 30 ml PO DAILYP PRN PRN Reason: Constipation Naloxone HCl (Narcan) 0.1 mg IV Q2MIN PRN PRN Reason: Opiate Reversal Ondansetron HCl (Zofran) 4 mg IV Q4HP PRN PRN Reason: Nausea And Vomiting Fluticasone/Salmeterol (Advair 250-50 Diskus) 1 puff INH BID [facility] Last Admin: 12/26/16 08:09 Dose: 1 puff Silver Sulfadiazine (Silvadene) 1 dose TOPICAL DAILY [facility] Last Admin: 12/26/16 10:26 Dose: 1 dose Sodium Chloride (Saline Flush) 10 ml IV Q8 [facility] Last Admin: 12/26/16 06:06 Dose: 10 ml Warfarin Sodium (Coumadin) 3 mg PO MoFr@1400 [facility] Last Admin: 12/24/16 14:32 Dose: 3 mg Warfarin Sodium (Coumadin) 6 mg PO SuTuWeThSa@1400 [facility] Last Admin: 12/25/16 14:16 Dose: 6 mg Medical - PN: A/P - Time Spent With Patient Total time spent is greater than 50% in coordination of care (as documented) at patient's floor/unit and/or counseling patient: - Narrative A/P Narrative: Acute on Chr Renal failure: Creat improved back to baseline, renal sonogram neg for hydro, likely cardio renal syndrome. Continue with IV lasix Acute on Chr Congestive Heart failure: due to ischemic and valvular etiology. continue IV lasix. fluid restriction monitor i/o , pt still has significant edema. continue gentle diuresis. Can resume oral meds at discharge. Elevated Troponin.: Likely secondary to renal failure and chf, EKG does not show ST elevations, torp tending down to 0.04. Hyperkalemia resolved. Hyponatremia: Last sodium was 130, presently 129, given fluid overloaded status , likely secondary to chf / ckd, continue diuresis, continue fluid restriction to 1500m. 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 lower leg wounds: Wound care consulted, management as per their recommendation. Rib Fractures: due to fall, pain management, Incentive spirometry. clinically better Atrial Fibrillation: Rate controlled on Cardizem, on Coumadin with therapeutic INR Elbow pain: CT shows hairline fracture of radius head, discussed with Dr Sam, who noted no intervention needed, no sling needed. Weakness/ Debility: OT/ PT/ ST , rehab once stable. DNR Cardiac diet D/C to SNF in AM if remains stable. Medical - PN: Qual - VTE Deep Vein Thrombosis/Pulmonary Embolism Present on Admission: No
[2016-12-26] MEDS: WARFARIN 3 MG TABLET PO SCH (15:05)
[2016-12-26] MEDS: LISINOPRIL 5 MG TABLET PO SCH (20:44)
[2016-12-27] MEDS: HYDROcodone/APAP 5/325MG TABLET PO PRN ×4 (00:37→17:15)
[2016-12-27 06:01] LABS: Basophils # (Auto) 0 K/mcL (0.0-0.3); Basophils % (Auto) 0.4 % (0.0-2.0); Eosinophils # (Auto) 0.1 K/mcL (0.0-0.7); Eosinophils % (Auto) 1.5 % (0.0-7.0); Granulocytes % (Auto) 73.7 % (38.0-78.0); Lymphocytes # (Auto) 0.4 K/mcL (1.5-4.8); Lymphocytes % (Auto) 8.9 % (15.5-49.0); Mean Cell Volume 91.7 fL (80.0-100.0); Mean Corpuscular HGB Conc 33.2 g/dL (31.0-36.0); Mean Corpuscular Hemoglobin 30.5 pg (26.0-34.0); Monocytes # (Auto) 0.6 K/mcL (0.1-0.9); Monocytes % (Auto) 15.5 % (1.0-12.0); Platelet Count 140 K/mcL (140-440); RBC 3.38 M/mcL (4.00-5.20); Red Cell Distribution Width 15.5 % (11.5-14.5)
[2016-12-27 06:28] LABS: ALT/SGPT 8 U/l (0-40); Albumin 3.4 gm/dL (3.2-5.2); Albumin/Globulin Ratio 1.5 (1.0-2.3); Alkaline Phosphatase 99 U/L (39-117); Bilirubin,Direct < 0.2 mg/dL (0.0-0.3); Blood Urea Nitrogen 41 mg/dl (8-23); Gamma Glutamyl Transpeptidase 86 U/L (5-36); Magnesium 1.9 mg/dL (1.6-2.5)
[2016-12-27] MEDS: 0.9 % SODIUM CHLORIDE 10 ML SYRINGE IV SCH ×3 (07:07→22:00)
[2016-12-27] MEDS ORDERED: FUROSEMIDE 40 MG/4 ML VIAL IV ONE (07:49)
[2016-12-27] MEDS: DILTIAZEM 120 MG CAP.XL.24H PO SCH (08:20)
[2016-12-27] MEDS: DILTIAZEM 180 MG CAP.XL.24H PO SCH (08:20)
[2016-12-27] MEDS: CYANOCOBALAMIN (VITAMIN B-12) 500 MCG TABLET PO SCH ×2 (08:21→19:39)
[2016-12-27] MEDS: FERROUS GLUCONATE 324 MG TABLET PO SCH (08:21)
[2016-12-27] MEDS: FLUTICASONE/SALMETEROL 250/50 INHALER #14 INH SCH ×2 (08:21→19:44)
[2016-12-27] MEDS: SILVER SULFADIAZINE CREAM.TOP 400GM TOPICAL SCH (10:44)
--- NOTE | 2016-12-27 12:45 | Internal Med Progress Note ---
Medical - PN: Subj Patient information: Note initiated : 12/27/16 at 12:43 pm Service Date, if different from initiated Date: [] Patient: Padilla Harmon 89 y/o F admitted on 12/24/16 for CHF, Rib Fractures, Elbow Injury. Chief Complaint: [] Interval history: Ms. 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 According to the patient she was doing well untill this AM, she was in a hurry to get to breakfast and was transferring from a walker to the wheelchair, she was in her closetwhen she slipped down and hurt the left side of her body. The patient denies any dizziness, any head injury, any passing out. The patient had chest pain on the left side. Since that time. The pain is moderate to severe sharp, nonradiating, worse with taking a deep breath or cough. Relieved by aking shallow breaths. The patient felt that she will not be able to get up by herself and therefore yelled for help The patient was brought into the ER and also protocol for evaluation. In the emergency room, the patient had x-ray of the left side of the ribs along with chest x-ray, there was concern about trauma to the left elbow. An x-ray of the left elbow was done. The x-ray of the chest showed possible fracture of the ribs 5, 6, 7. The exploratory moderate congestive heart failure, which is a chronic finding, along with cardiomegaly. The left elbow x-ray did not show any fracture, however, there was some swelling in the elbow joint with concern about hemarthrosis. Patient is on Coumadin with therapeutic INR. Patient's blood work shows low sodium at 125. This was a [id number] sodium, elevated creatinine 2.3, and troponin of 0.05 which is slightly above her baseline. The patient also has elevated BNP levels but not significantly different than her previous blood tests. The patient denies any cough, any fevers, any urinary symptoms, any bowel or bladder complaints and besides symptoms mentioned above. Does not feel that anything else is going on with her . The patient given her hyponatremia, worsening renal function New acute fractures, was admitted to the hospital for further evaluation. On talking to the family, the patient was recently admitted to [facility] for hyperkalemia,it seems that she had taken too much potassium at that time. And at that time. Also, there was concern about the kidney was not functioning very well. The patients was admitted to the hospital for acute on chr renal failure, rib fracture, congestive heart failure 12/25 patient seen and examined, no acute overnight events, she still has pain on the left side of the chest, pain is better when she is lying on her back, worse when she's sitting up. Worse when taking deep breaths. Patient is able to tolerate by mouth diet very well and besides of left-sided chest pain. Does not report any other complaints. Labs reviewed. Patient is still hyponatremic at 125, baseline 128-130, troponin is 0.04 which is slightly improved from yesterday. 12/26: Patient seen examined, no acute overnight events, patient doing well, did not complain much about pain on the left chest wall, Deneis any acute concern. Blood work reviewed, Na is improved to 129, creat 1.4, she will get additional dose of lasix today. Case reviewed with patients daughter Evi, plan for d/c to snf in AM if remains stable. She is chr fluid overloaded. Echo reviewed lvef 50 -55 visually, but has significant pulm htn, and ivc dilation. 12/27 patient seen, examined, no acute overnight events. She is doing well. Does not feel that she is sick. The pain is there, especially when she takes a deep breath or moves. Otherwise, does not have significant pain. Not very compliant with incentive spirometry pt educated need for compliance. Patient's lab work is stable. She will get another dose of Lasix IV today. Her sodium level dropped to 126. She will be on free water restrictions of 1 L for 24 hours. Continue to monitor. Plan for discharge when sodium is around 130. Pertinent ROS: Denies headache, dizziness Denies chest pain, palpitations (cp with movement or deep breath) Denies cough or shortness of breath Denies abdominal pain, nausea or vomiting. - Constitutional Vitals: Vital Signs Temp Pulse Resp BP Pulse Ox 96.7 F L 78 22 110/65 97 12/27/16 07:47 12/27/16 04:00 12/27/16 07:47 12/27/16 07:47 12/27/16 07:47 Period Temp Pulse Resp BP Sys/Kirby Pulse Ox Last 24 Hr 96.7 F-97.5 F 63-86 16-24 106-114/48-65 89-97 Intake and Output 12/26/16 12/27/16 12/27/16 21:59 05:59 13:59 Intake Total 480 / 480 405 / 405 100 / 100 Output Total 2 / 2 52 / 52 Balance 478 / 478 353 / 353 100 / 100 Weight 163 lb 8 oz Intake & Output: Intake & Output 12/26/16 12/27/16 12/27/16 21:59 05:59 13:59 Intake Total 480 / 480 405 / 405 100 / 100 Output Total 2 / 2 52 / 52 Balance 478 / 478 353 / 353 100 / 100 Weight 163 lb 8 oz Intake: Oral 480 / 480 405 / 405 100 / 100 Output: Void Amount 0 / 0 50 / 50 # of times incontinent of 2 / 2 2 / 2 urine Other: Meal Dinner Percent of Meal Consumed 50% # Voids 1 Exam: Constitutional; Afebrile, cooperative, alert, not in distress. Eyes- No icterus, , No periorbital swelling Ears- Ext ear normal, hearing normal to conversation. Neck- Midline trachea, supple Respiratory system: Air Entry equal on both sides, No crackles or wheezing, no rhonchi. CVS- Rate rhythm irregular, S1,S2 heard, no gallop, no rub. Abdomen- Soft nontender abdomen, no organomegaly, no tenderness, no guarding or rigidity, WEAVER W[employer] LOOM- AOOx3, moving all extremities, no gross focal deficit noted. Medical - PN: Obj Da - Labs CBC & Chem 7: 12/27/16 03:58 12/27/16 03:58 Labs: Abnormal Lab Results 12/27/16 12/27/16 12/27/16 03:58 03:58 03:58 WBC 4.2 L RBC 3.38 L Hgb 10.3 L Hct 31.0 L RDW 15.5 H Lymph % (Auto) 8.9 L [place] % (Auto) 15.5 H Lymph # (Auto) 0.4 L PT 32.8 H INR 3.1 H Sodium 126 L Chloride 86 L BUN 41 H Creatinine 1.3 H Uric Acid 11.0 H GGT 86 H Troponin T Total Protein 5.7 L 12/26/16 12/26/16 12/26/16 04:18 04:18 04:18 WBC RBC 3.32 L Hgb 10.2 L Hct 30.6 L RDW 15.7 H Lymph % (Auto) 7.8 L [place] % (Auto) 14.7 H Lymph # (Auto) 0.3 L PT 28.2 H INR 2.5 H Sodium 129 L Chloride 88 L BUN 41 H Creatinine 1.4 H Uric Acid 11.1 H GGT 87 H Troponin T Total Protein 5.8 L 12/25/16 12/25/16 12/25/16 08:10 08:10 07:59 WBC 3.6 L RBC 3.71 L Hgb 11.1 L Hct 33.4 L RDW 15.6 H Lymph % (Auto) 11.2 L [place] % (Auto) 16.0 H Lymph # (Auto) 0.4 L PT INR Sodium 125 L Chloride 87 L BUN 38 H Creatinine 1.5 H Uric Acid 11.0 H GGT 101 H Troponin T 0.04 H* Total Protein 12/25/16 03:31 WBC RBC Hgb Hct RDW Lymph % (Auto) [place] % (Auto) Lymph # (Auto) PT 24.8 H INR 2.2 H Sodium Chloride BUN Creatinine Uric Acid GGT Troponin T Total Protein Meds: Medications Acetaminophen (Tylenol) 650 mg PO Q6HP PRN PRN Reason: PAIN/FEVER > 101 Last Admin: 12/25/16 15:48 Dose: 650 mg Hydrocodone Bitart/Acetaminophen ([place]arson 5/325mg) 1 tab PO Q4HP PRN PRN Reason: Pain Last Admin: 12/27/16 08:21 Dose: 1 tab Albuterol/Ipratropium (Duoneb) 3 ml NEB Q4HRT PRN PRN Reason: Shortness Of Breath Or Wheezing Cyanocobalamin (Vitamin B-12) 1,000 mcg PO BID [facility] Last Admin: 12/27/16 08:21 Dose: 1,000 mcg Diltiazem HCl (Cardizem Cd) 120 mg PO DAILY [facility] Last Admin: 12/27/16 08:20 Dose: 120 mg Diltiazem HCl (Cardizem Cd) 180 mg PO DAILY [facility] Last Admin: 12/27/16 08:20 Dose: 180 mg [facility]ous [facility]) [facility] Last Admin: 12/27/16 08:21 Dose: 324 mg Lisinopril (Zestril) 2.5 mg PO [facility] Last Admin: 12/26/16 20:44 Dose: 2.5 mg Magnesium Hydroxide (Milk Of Magnesia) 30 ml PO DAILYP PRN PRN Reason: Constipation Naloxone HCl (Narcan) 0.1 mg IV Q2MIN PRN PRN Reason: Opiate Reversal Ondansetron HCl (Zofran) 4 mg IV Q4HP PRN PRN Reason: Nausea And Vomiting Fluticasone/Salmeterol (Advair 250-50 Diskus) 1 puff INH BID [facility] Last Admin: 12/27/16 08:21 Dose: 1 puff Sodium Chloride (Saline Flush) 10 ml IV Q8 [facility] Last Admin: 12/27/16 07:07 Dose: 10 ml Medical - PN: A/P - Time Spent With Patient Total time spent is greater than 50% in coordination of care (as documented) at patient's floor/unit and/or counseling patient: - Narrative A/P Narrative: Acute on Chr Renal failure: Creat improved back to baseline, renal sonogram neg for hydro, likely cardio renal syndrome. Continue with IV lasix Acute on Chr Congestive Heart failure: due to ischemic and valvular etiology. continue IV lasix. fluid restriction monitor i/o , pt still has significant edema. continue gentle diuresis. Can resume oral meds at discharge. echo reviewed, Elevated Troponin.: Likely secondary to renal failure and chf, EKG does not show ST elevations, trop tending down to 0.04. Hyperkalemia resolved. Hyponatremia: Last sodium was 130, 1236 now, Fluid restriction to 1L a day, continue with diuretics,likely due to chf and (Saidh) due to pain. lower leg wounds: Wound care consulted, management as per their recommendation. Rib Fractures: due to fall, pain management, Incentive spirometry. clinically better but not very compliant with the incentive spirometery, pt educated on ened for compliance. Atrial Fibrillation: Rate controlled on Cardizem, on Coumadin with therapeutic INR Elbow pain: CT shows hairline fracture of radius head, discussed with Dr Sam, who noted no intervention needed, no sling needed. Weakness/ Debility: rehab once stable. DNR Cardiac diet, fluid restricted diet. Medical - PN: Qual - VTE Deep Vein Thrombosis/Pulmonary Embolism Present on Admission: No
[2016-12-27] MEDS: ACETAMINOPHEN 325 MG TABLET PO PRN (19:39)
[2016-12-27] MEDS: LISINOPRIL 5 MG TABLET PO SCH (19:40)
[2016-12-28] MEDS: 0.9 % SODIUM CHLORIDE 10 ML SYRINGE IV SCH (05:52)
[2016-12-28 06:52] LABS: Basophils # (Auto) 0 K/mcL (0.0-0.3); Basophils % (Auto) 0.3 % (0.0-2.0); Eosinophils # (Auto) 0.1 K/mcL (0.0-0.7); Eosinophils % (Auto) 1.8 % (0.0-7.0); Granulocytes % (Auto) 72.4 % (38.0-78.0); Lymphocytes # (Auto) 0.4 K/mcL (1.5-4.8); Lymphocytes % (Auto) 9.4 % (15.5-49.0); Mean Cell Volume 91.7 fL (80.0-100.0); Mean Corpuscular HGB Conc 32.7 g/dL (31.0-36.0); Monocytes # (Auto) 0.7 K/mcL (0.1-0.9); Monocytes % (Auto) 16.1 % (1.0-12.0); Platelet Count 152 K/mcL (140-440); RBC 3.38 M/mcL (4.00-5.20); Red Cell Distribution Width 15.8 % (11.5-14.5)
[2016-12-28 08:59] LABS: ALT/SGPT 7 U/l (0-40); Albumin 3.4 gm/dL (3.2-5.2); Albumin/Globulin Ratio 1.4 (1.0-2.3); Alkaline Phosphatase 102 U/L (39-117); Bilirubin,Direct < 0.2 mg/dL (0.0-0.3); Blood Urea Nitrogen 48 mg/dl (8-23); Gamma Glutamyl Transpeptidase 88 U/L (5-36); Magnesium 1.9 mg/dL (1.6-2.5); Uric Acid 11.3 mg/dL (2.5-8.0)
[2016-12-28] MEDS: DILTIAZEM 120 MG CAP.XL.24H PO SCH (09:29)
[2016-12-28] MEDS: DILTIAZEM 180 MG CAP.XL.24H PO SCH (09:29)
[2016-12-28] MEDS: CYANOCOBALAMIN (VITAMIN B-12) 500 MCG TABLET PO SCH (09:30)
[2016-12-28] MEDS: FERROUS GLUCONATE 324 MG TABLET PO SCH (09:30)
--- NOTE | 2016-12-28 11:24 | Discharge Summary ---
Medical - DS: Prov Patient information: Note initiated : 12/28/16 at 11:20 am Service Date, if different from initiated Date: [] Patient: Padilla Harmon 89 y/o F admitted on 12/24/16 for CHF, Rib Fractures, Elbow Injury. Chief Complaint: [] Date of admission: 12/24/16 10:45 Discharge date: 12/28/16 Primary care physician: Doroteo Fried Admitting clinician: Ricki Rodriguez Discharging clinician: Ricki Rodriguez Medical - DS: Meds - Discharge Medications Prescriptions: Metolazone [Zaroxolyn] 2.5 mg PO DAILY #30 tablet oxyCODONE HCL [Oxycodone HCl] 5 mg PO Q4 PRN #60 tablet PRN Reason: Pain Potassium Chloride [Kdur] 10 meq PO BIDCC #60 tablet Warfarin Sodium [Jantoven] 4 mg PO DAILY #30 tablet Active and Home Medications: Home Medications Cyanocobalamin (Vitamin B-12) [Vitamin B12] 1,000 mcg PO BID 10/08/16 [History Confirmed 12/24/16 Last Taken 12/23/16 21:00] Ferrous Gluconate [Fergon] 324 mg PO DAILY 10/08/16 [History Confirmed 12/24/16 Last Taken 12/23/16 08:00] lisinopril 2.5 mg tablet 2.5 mg PO .COMPLEX #30 tab 10/15/16 [Rx Confirmed 12/24 Last Taken 12/23/16 20:00] potassium chloride ER 10 mEq tablet,extended release 20 meq PO BID #56 tab 10/15 [Rx Confirmed 12/24/16 Last Taken 12/23/16 08:00] diltiazem ER 360 mg capsule,24 hr,extended release 300 mg PO QDAY #90 cap [Rx Confirmed 12/24/16 Last Taken 12/23/16 08:00] fluticasone 250 mcg-salmeterol 50 mcg/dose blistr powdr for inhalation 1 puff INHALATION BID #60 each 10/30/16 [Rx Confirmed 12/24/16 Last Taken 12/23/16 08: 00] furosemide 40 mg tablet 40 mg PO BID #60 tab 11/01/16 [Rx Confirmed 12/24/16 Last Taken 12/23/16 08:00] metolazone 5 mg tablet 5 mg PO QDAY #30 tab 11/26/16 [Rx Confirmed 12/24/16 Last Taken 12/23/16 08:00] silver sulfadiazine 1 % topical cream 1 applic TOPICAL QDAY #50 g 12/03/16 [Rx Confirmed 12/24/16 Last Taken Unknown] Warfarin Sodium [Jantoven] 3 mg PO MOTH@1400 12/24/16 [History Confirmed Last Taken Unknown] Warfarin Sodium [Jantoven] 6 mg PO SUTUWEFRSA@1400 12/24/16 [History Confirmed 12/24/16 Last Taken Unknown] Medical - DS: Hosp Hospital course: Ms. 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 The patient denies any dizziness, any head injury, any passing out. The patient had chest pain on the left side which developed after the fall which was pleuritic in nature. The patient felt that she will not be able to get up by herself and therefore yelled for help The patient was brought into the ER for further evaluation. In the emergency room, the patient had x-ray of the left side of the ribs along with chest x-ray, there was concern about trauma to the left elbow. An x-ray of the left elbow was done. The x-ray of the chest showed possible fracture of the ribs 5, 6, 7. The x ray showed moderate congestive heart failure, which is a chronic finding, along with cardiomegaly. The left elbow x-ray did not show any fracture, however, there was some swelling in the elbow joint with concern about hemarthrosis. Patient is on Coumadin with therapeutic INR. Patient's blood work shows low sodium at 125. This was a [id number] sodium, elevated creatinine 2.3, and troponin of 0.05 which is slightly above her baseline. The patient also has elevated BNP levels but not significantly different than her previous blood tests. The patient denies any cough, any fevers, any urinary symptoms, any bowel or bladder complaints and besides symptoms mentioned above. Does not feel that anything else is going on with her. The patient given her hyponatremia, worsening renal function New acute fractures, was admitted to the hospital for further evaluation. On talking to the family, the patient was recently admitted to [facility] for hyperkalemia,it seems that she had taken too much potassium at that time. And at that time. Also, there was concern about the kidney was not functioning very well. The patients was admitted to the hospital for acute on chr renal failure, rib fracture,chronic congestive heart failure. The patient rib fractures were treated conservatively with pain management and incentive spirometer. The patient has borderline oxygen needs, her oxygen saturation is between 87-92% on RA, which is acceptable at this time. She will continue with aggressive incentive spirometer at the rehab center.For the elbow hairline fracture, only pain management is recommended at this time. The patient has BRITNEY on CKD, creat at the time of discharge is 1.5 which has improved from 2.1 on admission., she also has chr hyponatremia with baseline sodium of around 130, at the time of discharge her sodium level is 128,She will be discharged home on lasix 40mg bid and metolozone 2.5mg qd (dose cut back 5mg qd to 2.5mg qd). Her K supplements also cut back to 10meq BID (she was taking 20bid at home, we cut it back as we are cutting back on the patients metolozone) CHF : Management with diuretics as above, more importantly she needs to have strict fluid restriction, which will help more with her CHF as well as her Hyponatremia. Plan to keep her on 1200ml fluid restriction. Echo done showed lvef 50-55% but significant pulm htn, and ivc dilation. She is on [facility] anticoagulation for afib, INR was supratherapeutic on presentation. Plan to change her dose of Coumadin to 4mg qd. She was on 3mg Mo TH and 6mg the rest of the days. weekly dose was 36mg, which is now cut back to 28mg. She will hold Coumadin for 2 days before starting Coumadin. She will need to have her INR checked in 5 days after discharge. The patient at the time of discharge is hemodynamically stable, tolerating po well, able to use incentive spirometer and pain is reasonably controlled. Discharge diagnosis: Rib fracture, Acute Kidney Injury. - Time Spent with Patient Total time spent providing and/or coordinating discharge services: Greater than 30 minutes Medical - DS: Exam - Constitutional Vitals: Vital Signs Temp Pulse Pulse Resp BP BP Pulse Ox 12/28/16 06:56 96.7 F L 16 112/51 87 L 12/28/16 04:00 98.1 F 81 20 110/65 91 12/27/16 23:30 97.3 F 74 16 106/44 90 12/27/16 19:57 74 18 12/27/16 19:48 66 12/27/16 19:34 97.3 F 64 18 91/48 90 12/27/16 18:51 57 L 88 L 12/27/16 15:23 96.9 F L 53 L 20 93/56 90 12/27/16 12:00 96.5 F L 22 100/44 92 Intake and Output 12/27/16 12/28/16 12/28/16 21:59 05:59 13:59 Intake Total 390 / 390 280 / 280 180 / 180 Output Total 150 / 150 100 / 100 Balance 389 / 389 130 / 130 80 / 80 Intake: Oral 390 / 390 280 / 280 180 / 180 Output: Void Amount 150 / 150 100 / 100 # of times incontinent of urine Other: Meal Dinner Percent of Meal Consumed 75% # Bowel Movements 1 Weight 168 lb Additional comments: Constitutional; Afebrile, cooperative, alert, not in distress. Eyes- No icterus, , No periorbital swelling Ears- Ext ear normal, hearing normal to conversation. Neck- Midline trachea, supple Respiratory system: Air Entry equal on both sides, No crackles or wheezing, no rhonchi. CVS- Rate rhythm irregular, S1,S2 heard, no gallop, no rub. Abdomen- Soft nontender abdomen, no organomegaly, no tenderness, no guarding or rigidity, CATTLE EXAMINER- AOOx3, moving all extremities, no gross focal deficit noted. Medical - DS: Data Procedures and tests throughout hospitalization: Elbow X ray. IMPRESSION: No fracture line or other osseous abnormality appreciated Moderate elbow effusion. Typically, in a posttraumatic situation, this would indicate an occult fracture with associated hemarthrosis. In this particular case, the patient has chondrocalcinosis and may have an underlying arthritic process, such as gout or pseudogout, which may result in an effusion independent of trauma. As a conservative measure, suggest immobilization and repeat film in 10 days to ensure the absence of a occult fracture which may be visible on delayed imaging. Also, please query patient regarding pre-existing elbow pain suggestive of a chronic arthritic process Elbow CT IMPRESSION: 1. Subtle curvilinear hairline fracture involving the medial aspect of the radial head. 2. 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 This is likely merely related to degeneration could also indicate gout, pseudogout, hypercalcemia or hypothyroidism X ray Ribs/ Chest IMPRESSION: Moderate CHF - unchanged Acute left fifth and probable six and seventh rib fractures USG Renal IMPRESSION: 1. Bilateral simple cysts stable since 2010 CT 2. 5 mm nonobstructing stone mid calyx left kidney. Echo done 50-55 LVEF, see chart for details. Labs on day of discharge: Labs from last 24 hours 12/28/16 12/28/16 12/28/16 04:16 04:16 04:16 WBC 4.2 L RBC 3.38 L Hgb 10.1 L Hct 30.9 L MCV 91.7 MCH 30.0 MCHC 32.7 RDW 15.8 H Plt Count 152 MPV 7.7 Gran % 72.4 Lymph % (Auto) 9.4 L [place] % (Auto) 16.1 H Eos % (Auto) 1.8 Baso % (Auto) 0.3 Gran # 3.1 Lymph # (Auto) 0.4 L [place] # (Auto) 0.7 Eos # (Auto) 0.1 Baso # (Auto) 0 PT 36.5 H INR 3.5 H Sodium 128 L Potassium 4.8 Chloride 86 L Carbon Dioxide 25 Anion Gap 17.0 H BUN 48 H Creatinine 1.5 H GFR Calculation 31 Glucose 94 Uric Acid 11.3 H Calcium 10.2 Phosphorus 4.4 Magnesium 1.9 Total Bilirubin 0.4 Direct Bilirubin < 0.2 GGT 88 H AST 18 ALT 7 Alkaline Phosphatase 102 Lactate Dehydrogenase 187 Total Protein 5.8 L Albumin 3.4 Globulin 2.4 Albumin/Globulin Ratio 1.4 Triglycerides 42 Medical - DS: A/P - Patient/Caregiver Discharge Instructions Activity: as per physical therapy Diet: Cardiac (Free Water restriction to 1200ml/ 24 hrs ) Additional Instructions: [facility]. [phone]. A referral has been sent. The office will call with an appointment. If you haven' t heard from them in a week, please give them a call. Follow up with PCP in 2 weeks Hold coumadin for 2 days, Restart at 4mg once daily from 12/30/16, check INR in 5 days on 01/02/17 and forward results to the patients PCP. Aggressive incentive spirometery use, try for target of 10 times every 2 hrs. Go to the ER if worsening pain, fever, shortness of breath or any other concerning symptom. ST/ OT/PT reval - Follow up Plan Follow up with: Doroteo Fried MD [Primary Care Provider] - Disposition: Xfer SNF Prognosis: Fair Rehab Potential: Fair I certify that the patient requires SNF services: Yes Overall status at discharge: patient is progressing back to baseline Medical - DS: Qual - VTE Deep Vein Thrombosis/Pulmonary Embolism Present on Admission: No
== END 2016-12-28 12:15 | DRG 184 ==
LOC: ED 07:07 → ICU 10:45 → MEDSUR 12-25 21:20
PROVIDERS: ADMIT Internal Medicine; ATTEND Internal Medicine